=== PATIENT | female | born 1975 | race Caucasian/White ===

== ENCOUNTER → 2017-01-19 | Outpatient (CLI) | payer BC ==
[2017-01-19 09:16] LABS: ALBUMIN 4.4 g/dL (3.5-5.0); BUN/CREATININE RATIO 17.1 (6.0-26.0); CALCIUM 9.9 mg/dL (8.4-10.2); POTASSIUM 4.3 mmol/L (3.6-5.0); TOTAL BILIRUBIN 0.7 mg/dL (0.2-1.3); TOTAL PROTEIN 8.1 g/dL (6.3-8.2)
== END ==
LOC: LAB 08:26
PROVIDERS: Family Medicine
DX: Z00.00 Encounter for general adult medical examination without abnormal findings (principal); Z13.6 Encounter for screening for cardiovascular disorders; Z13.1 Encounter for screening for diabetes mellitus

== ENCOUNTER 2018-01-05 08:11 | Emergency (ER) | payer BC ==
[2018-01-05 10:10] VITALS: BP 130/67
== END 2018-01-05 10:13 | disposition home or self-care (01) ==
LOC: ED 08:11
DX: S92.355A Nondisplaced fracture of fifth metatarsal bone, left foot, initial encounter for closed fracture (principal); X50.1XXA Overexertion from prolonged static or awkward postures, initial encounter; Y92.009 Unspecified place in unspecified non-institutional (private) residence as the place of occurrence of the external cause
CPT/HCPCS: L4386

== ENCOUNTER → 2018-10-16 | Outpatient (CLI) | payer BC | LOC: RAD 15:53 | DX: R05 Cough (principal) ==

== ENCOUNTER 2019-07-26 18:01 | Emergency (ER) | payer BC ==
[2019-07-26 18:42] VITALS: BP 129/92
== END 2019-07-26 18:38 | disposition home or self-care (01) ==
LOC: ED 18:01
DX: S61.210A Laceration without foreign body of right index finger without damage to nail, initial encounter (principal); Z23 Encounter for immunization; W26.0XXA Contact with knife, initial encounter; Y92.009 Unspecified place in unspecified non-institutional (private) residence as the place of occurrence of the external cause
CPT/HCPCS: 90715

== ENCOUNTER 2019-07-30 08:02 | Emergency (ER) | payer BC ==
[2019-07-30 08:27] LABS: EOS # 0.3 (0.04-0.40); EOS % 3.2 % (1.0-5.0); HEMATOCRIT 44.9 % (37.0-47.0); HEMOGLOBIN 14.7 g/dL (12.5-16.0); LYMPH# 2.5 (1.50-4.00); MEAN CELL VOLUME 91 fl (78-100); MEAN CORPUSCULAR HEMOGLOBIN 30 pg (27-31); MEAN CORPUSCULAR HGB CONC 33 g/dL (33-37); MEAN PLATELET VOLUME 8.7 fl (7.4-10.4); MONO # 0.8 (0.20-0.80); NEU # 7.1 (1.40-6.50); PLATELET COUNT 330 K/mm3 (130-400); RED BLOOD COUNT 4.95 M/mm3 (4.10-5.30); RED CELL DISTRIBUTION WIDTH 13.4 % (11.5-14.5); WHITE BLOOD COUNT 10.7 K/mm3 (4.8-10.8)
[2019-07-30 08:35] LABS: URINE APPEARANCE CLEAR; URINE BILIRUBIN NEGATIVE (NEGATIVE); URINE BLOOD NEGATIVE (NEGATIVE); URINE COLOR YELLOW; URINE GLUCOSE NEGATIVE (NEGATIVE); URINE KETONE NEGATIVE (NEGATIVE); URINE LEUKOCYTE ESTERASE NEGATIVE (NEGATIVE); URINE NITRATE NEGATIVE (NEGATIVE); URINE PROTEIN(semi-quant) NEGATIVE (NEGATIVE); URINE UROBILINOGEN NORMAL (NORMAL)
[2019-07-30 08:36] LABS: URINE MUCUS PRESENT (NOT PRESENT)
[2019-07-30 08:36] LABS: ALBUMIN 4.1 g/dL (3.5-5.0)
[2019-07-30 08:37] LABS: POTASSIUM 3.7 mmol/L (3.5-5.1)
[2019-07-30 08:39] LABS: TOTAL PROTEIN 7.4 g/dL (6.4-8.3)
[2019-07-30 08:41] LABS: TOTAL BILIRUBIN 0.5 mg/dL (0.2-1.2)
[2019-07-30 11:39] VITALS: BP 125/76
== END 2019-07-30 11:28 | disposition home or self-care (01) ==
LOC: ED 08:02
PROVIDERS: Physician Assistant
DX: K63.89 Other specified diseases of intestine (principal)
CPT/HCPCS: Q9967

== ENCOUNTER → 2020-10-14 | Outpatient (REF) | LOC: LAB 08:13 | DX: L29.3 Anogenital pruritus, unspecified (principal) ==

== ENCOUNTER → 2021-02-13 | Outpatient (CLI) | payer BC | LOC: LAB 09:03 | DX: Z20.822 Contact with and (suspected) exposure to COVID-19 (principal) ==

== ENCOUNTER → 2021-12-08 | Outpatient (CLI) | payer BC | LOC: AMSURD 15:46 | DX: Z86.73 Personal history of transient ischemic attack (TIA), and cerebral infarction without residual deficits (principal) ==

== ENCOUNTER → 2021-12-13 | Outpatient (CLI) | payer BC | LOC: RAD 14:00 → VAS 15:23 | DX: Z86.73 Personal history of transient ischemic attack (TIA), and cerebral infarction without residual deficits (principal) ==

== ENCOUNTER → 2022-01-20 | Outpatient (CLI) | payer BC ==
[2022-01-20 10:17] LABS: BASO # 0.03 K/mm3 (0.02-0.10); EOS # 0.15 K/mm3 (0.04-0.40); EOS % 2.2 % (1.0-5.0); HEMATOCRIT 44.8 % (37.0-47.0); HEMOGLOBIN 14.7 g/dL (12.5-16.0); LYMPH# 2.07 K/mm3 (1.50-4.00); MEAN CELL VOLUME 91 fl (78-100); MEAN CORPUSCULAR HEMOGLOBIN 30 pg (27-31); MEAN CORPUSCULAR HGB CONC 33 g/dL (33-37); MEAN PLATELET VOLUME 8.4 fl (7.4-10.4); MONO # 0.35 K/mm3 (0.20-0.80); NEU # 4.08 K/mm3 (1.40-6.50); PLATELET COUNT 349 K/mm3 (130-400); RED BLOOD COUNT 4.91 M/mm3 (4.10-5.30); RED CELL DISTRIBUTION WIDTH 12.5 % (11.5-14.5); WHITE BLOOD COUNT 6.7 K/mm3 (4.8-10.8)
[2022-01-20 10:25] LABS: ALBUMIN 4.4 g/dL (3.5-5.0); POTASSIUM 4.1 mmol/L (3.5-5.1)
[2022-01-20 10:26] LABS: CALCIUM 9.7 mg/dL (8.3-10.5)
[2022-01-20 10:29] LABS: TOTAL BILIRUBIN 0.7 mg/dL (0.2-1.2)
== END ==
LOC: LAB 09:52
PROVIDERS: Nurse Practitioner Family
DX: R58 Hemorrhage, not elsewhere classified (principal); R45.0 Nervousness; Z86.73 Personal history of transient ischemic attack (TIA), and cerebral infarction without residual deficits

== ENCOUNTER → 2023-06-18 | Outpatient (CLI) | payer OTHER | LOC: RAD 11:53 | DX: M79.89 Other specified soft tissue disorders (principal) ==